=== PATIENT | female | born 1965 | race Two or more races ===

== ENCOUNTER 2017-07-03 06:42 | Day surgery (SDC) | payer OTHER ==
[~2017-07-03] VITALS: Ht 162.6 cm; Wt 70.3 kg
[2017-07-03] VITALS (9 sets, daily range): BP systolic 116–169; BP diastolic 75–94
[2017-07-03] MEDS ORDERED: LR 1000ml 1,000 ML IVLG SCH (07:00)
[2017-07-03] MEDS ORDERED: LEVOTHYROXINE100 MCG ORAL (07:25)
[2017-07-03] MEDS ORDERED: SIMVASTATIN20 MG ORAL (07:25)
[2017-07-03] MEDS ORDERED: LISINOPRIL20 MG ORAL (07:25)
--- NOTE | 2017-07-03 07:42 | Short Stay Surgery H&P ---
History of Present Illness History of Present Illness Chief Complaint Abdominal pains, GERDs and rectal bleeding AZALEA Barrios is a 52 year old female who was admitted on for Abdominal Pain,Gerds and rectal bleeding Patient History Allergies: Coded Allergies: No Known Allergies (Unverified , 07/02/17) PAST MEDICAL HISTORY: (1) Hypertension (2) Hypothyroid (3) Hyperlipidemia Past Surgeries: (1) S/P wrist surgery (2) Carpal tunnel syndrome of right wrist (3) Rotator cuff syndrome of right shoulder Social History: Medication History Scheduled Levothyroxine Sodium* (Levothyroxine Sodium*), 100 MCG ORAL DAILY, (Reported) Lisinopril (Lisinopril*), 20 MG ORAL DAILY, (Reported) Simvastatin (Zocor), 20 MG ORAL BEDTIME, (Reported) Review of Systems Cardiovascular: Reports: no symptoms Respiratory: Reports: no symptoms Skeletal: Reports: no symptoms Gastrointestinal: Reports: gastro esophageal reflux disease Genitourinary: Reports: no symptoms Neurologic: Reports: no symptoms Endocrine: Reports: other Hematologic: Reports: no symptoms Physical Exam Vital Signs Last Vital Signs Date Time Temp Pulse Resp B/P (MAP) Pulse Ox O2 Delivery O2 Flow Rate FiO2 07/03/17 07:27 97.7 51 20 140/82 100 Room Air Skin: normal HENT: normal Lungs: normal Abdomen: abnormal Extremities: normal Genitourinary: normal Plan Plan of Care Upper and lowe GI endoscopy Preop Interventions None. Summary of Findings See the reports. Final Diagnosis: Attestation Are the patient's medical conditions optimized for surgery? Attestation Response: yes LAWANDA BALLESTEROS Jul 03, 2017 07:42
--- NOTE | 2017-07-03 07:43 | Pre-Procedure Note/Attestation ---
Pre-Procedure Note/Attestation Complete Prior to Procedure Planned Procedure: left Procedure Narrative: Upper and lower Endoscopic exam of the GI tract. Indications for Procedure Pre-Operative Diagnosis: R/O Peptic ulcer/Gastritis/ Hemorrhoids/polyps/colitis. Attestation I attest that I discussed the nature of the procedure; its benefits; risks and complications; and alternatives (and the risks and benefits of such alternatives ), prior to the procedure, with the patient (or the patient's legal patient intake representative). I attest that, if there was a reasonable possibility of needing a blood transfusion, the patient (or the patient's legal patient intake representative) was given the [place] Department [facility] [employer] [facility] standardized written summary, pursuant to the Kenji Hortensia Blood Safety Act ([place] Health and Safety Code # 1645, as amended). I attest that I re-evaluated the patient just prior to the surgery and that there has been no change in the patient's H&P, except as documented below: LESLI,SAID Jul 03, 2017 07:43
[2017-07-03] MEDS ORDERED: LR 1000ml ONE (08:00)
[2017-07-03] MEDS ORDERED: Lidocaine 1% MPF 10mg/ml 5ml ONE (08:00)
[2017-07-03] MEDS ORDERED: Propofol 200mg/20ml IV ONE (08:00)
--- NOTE | 2017-07-03 08:27 | Immediate Post-Op Evaluation ---
Immediate Post-Op Evalulation Immediate Post-Op Evalulation Procedure: EGD Colonoscopy Date of Evaluation: Jul 03, 2017 Time of Evaluation: 08:27 IV Fluids: 300 Blood Pressure Systolic: 130 Blood Pressure Diastolic: 60 Pulse Rate: 50 Respiratory Rate: 14 O2 Sat by Pulse Oximetry: 100 Temperature (Fahrenheit): 97.0 Nausea: No Vomiting: No Complications none Patient Status: awake, reacts, patent Hydration Status: adequate Drug: none ARTEM GARCIA CRNA Jul 03, 2017 08:27
--- NOTE | 2017-07-03 08:29 | Anethesia Preoperative Eval ---
Anesthesia Pre-op PMH/ROS General Date of Evaluation: Jul 03, 2017 Time of Evaluation: 08:28 Anesthesiologist: sade ASA Score: ASA 2 Mallampati Score Class I : Soft palate, uvula, fauces, pillars visible Class II: Soft palate, uvula, fauces visible Class III: Soft palate, base of uvula visible Class IV: Only hard plate visible Mallampati Classification: Class II Surgeon: Allie Diagnosis: GERD Surgical Procedure: EGD/Colonoscopy Anesthesia History: none Allergies: Coded Allergies: No Known Allergies (Unverified , 07/02/17) Medications: see eMAR Past Medical History Cardiovascular: Reports: HTN Pulmonary: Denies: asthma, COPD, WILIAN, other Gastrointestinal/Genitourinary: Reports: GERD Endocrine: Reports: hypothyroidism Hematology/Immune: Denies: anemia, DVT, bleeding disorder, other Musculoskeletal/Integumentary: Denies: OA, RA, DJD, DDD, edema, other PSxH Narrative: shoulder surgery Anesthesia Pre-op Phys. Exam Physician Exam Last Vital Signs Date Time Temp Pulse Resp B/P (MAP) Pulse Ox O2 Delivery O2 Flow Rate FiO2 07/03/17 07:27 97.7 51 20 140/82 100 Room Air Constitutional: NAD Neurologic: CN 2-12 intact Cardiovascular: RRR Respiratory: CTA Gastrointestinal: S/NT/ND Airway Exam Mallampati Classification 2 Mallampati Score: Class II MO: full ROM: full Dentures: no upper, no lower Anesthesia Pre-op A/P Labs Urine Test menopause Studies Pre-op Studies: EKG - sr Risk Assessment & Plan Plan: mac Status Change Before Surgery: No Pre-Antibiotics Drug: none KEEGANRILLARTEM ELIZABETH [employer]UC[employer] PROGRAM ASSOCIATE Jul 03, 2017 08:29
--- NOTE | 2017-07-03 09:17 | Discharge Instructions ---
Discharge Instructions Discharge Instructions Follow up with: See the docotor after 2 weeks in the office For Congestive Heart Failure Reminder Report to your physician any weight gain of 5 pounds or more in one week. LAWANDA BALLESTEROS Jul 03, 2017 09:17
--- NOTE | 2017-07-03 09:19 | Endoscopy Procedure Note ---
Endoscopy Procedure Note Indication for Procedure: Abdominal pains and GERDs and rectal bleeding Procedures Performed: EGD - Completely normal upper GI endoscopy, biopsy done per random from gastric body., colonoscopy - Minimal internal hemorrhoids ( grade I/II) otherwise compeletely normal colon. Specimen: yes Pt Tolerated Procedure Well: Yes Estimated Blood Loss: none Anesthesiologist: Dr. Dean Anesthesia: moderate sedation Medication Given: see anesthesia record Implant(s) used?: No 50 yrs or older w/o bx or poly: Yes 10yrs. F/U not recommended: Yes If not recommended, why?: 10 yrs. F/U needed: Yes Med reason:<3 yrs.: System Reason:<3 yrs.: LAWANDA BALLESTEROS Jul 03, 2017 09:19
--- NOTE | 2017-07-03 09:32 | 48 Hour Post Anesthesia Eval ---
Post Anesthesia Evaluation Procedure: EGD Colonoscopy Date of Evaluation: Jul 03, 2017 Time of Evaluation: 09:32 Blood Pressure Systolic: 133 0: 79 Pulse Rate: 54 Respiratory Rate: 14 O2 Sat by Pulse Oximetry: 98 Airway: patent Nausea: No Vomiting: No Hydration Status: adequate Cardiopulmonary Status: stable Mental Status/LOC: patient returned to baseline Post-Anesthesia Complications: none Follow-up care needed: N/A ARTEM GARCIA CRNA Jul 03, 2017 09:32
--- NOTE | 2017-07-03 17:30 | Pre-op HX & Phy Repo 2 SIG ---
DATE OF ADMISSION: 07/03/2017 REFERRING PHYSICIAN: Dank Low M.D. HISTORY OF PRESENT ILLNESS: The applicant is a 52-year-old female, who is being seen prior to undergoing a procedure of upper and lower GI endoscopy for which she has been scheduled for evaluation of her condition in gastrointestinal tract related to work accident. The applicant basically is complaining of experiencing pain over the upper part of the abdomen, particularly over the epigastric area. She also has been experiencing intermittent rectal bleeding as well as she has also had symptoms of constipation. She reports that these abdominal pains are recurring on a daily basis and she has been treated with multiple medications including nonsteroidal anti-inflammatory agents and narcotics with codeine derivatives and as such she has been experiencing these symptoms gradually started. Basically, she has never been worked up for these conditions, which occurred subsequent to her work injury. However, the patient reports that she has been treated with acid suppressive medications including Protonix, which seems to be somewhat helpful, but still she continued to have symptoms of heartburn during the night for which I recently saw her and gave her Zantac to be taken at nighttime, which she reports has been helping her quite significantly. 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 She has suffered injuries over different parts of the body particularly right shoulder, which required surgery. She also did gradually develop injuries over the left wrist and left hand area. She also had an accident in the patient room. PAST MEDICAL HISTORY: Hypertension, hypothyroidism, and high lipids. PAST SURGICAL HISTORY: Carpal tunnel syndrome in 2012, right shoulder surgery in 2014, and left wrist cyst removal in 2011. LIST OF PRESENT MEDICATIONS: Protonix, Tylenol with Codeine, simvastatin, lisinopril, and levothyroxine. ALLERGIES: None significant. HABITS: The applicant occasionally drinks some alcohol, but very rarely smoke cigarettes, but does not use illicit drugs. REVIEW OF SYSTEMS: Basically history of present illness. PHYSICAL EXAMINATION: GENERAL: Reveals an alert and oriented female, does not seem to be in any acute distress. She answers the questions quite properly. She looks good. VITAL SIGNS: Stable. HEENT: Normocephalic. Pupils are equal in size and reactive to light. No visible jaundice. Buccal cavity, tongue midline, well hydrated. No ulcers. NECK: Supple. No JVD or thyromegaly. CHEST: Clear to auscultation and percussion. No rales or rhonchi. HEART: S1 and S2 normal. Regular rhythm. No gallops or murmur. ABDOMEN: Soft and there is some mild tenderness over upper part of the abdomen, but no organomegaly noted. No palpable mass. Bowel sounds are present. EXTREMITIES: Unremarkable. PRELIMINARY IMPRESSION: 1. Epigastric pain of uncertain etiology, rule out gastroesophageal acid reflux induced by nonsteroidal anti-inflammatory drug medications, rule out underlying peptic ulcer disease, duodenal ulcer, gastritis, and gastric ulcer secondary to use of nonsteroidal anti-inflammatory drug medications. 2. History of rectal bleeding of uncertain etiology, rule out hemorrhoids versus polyps, tumors, colitis, etc. RECOMMENDATION: The applicant seems to be stable at this time to undergo the procedure for upper and lower GI endoscopy for which she has been scheduled. She understands the risks and benefits and will sign the consent. Said Meghna Rowe DR: MAO JOB#: [id number] CC: JANETT
--- NOTE | 2017-07-03 18:15 | Operative Note - Dictated ---
DATE OF OPERATION: 07/03/2017 REFERRING PHYSICIAN: Dank Low M.D. PROCEDURE: Esophagogastroduodenoscopy with biopsy. PREOPERATIVE DIAGNOSES: 1. Abdominal pain. 2. History of gastroesophageal reflux. POSTOPERATIVE DIAGNOSIS: Completely normal upper gastrointestinal endoscopy. Biopsy was taken per random for histology. MEDICATIONS USED: Per Dr. Dean. INSTRUMENT: GIF Olympus upper gastrointestinal video endoscope. DESCRIPTION OF PROCEDURE: The patient, after arriving in the endoscopy unit, was told about risks and benefits of the procedure, which she accepted and signed the informed consent. She was then put in the left lateral decubitus position. After adequate IV sedation, the scope was gently passed through the cricopharyngeal area, was lodged into the upper esophagus, and gradually advanced towards gastroesophageal junction. The entire length of the esophagus looked normal and there was no any evidence of inflammatory process, ulceration, stricture, etc. GE junction also looked normal. No No's or hiatal hernia noted. At this time, the scope was advanced into the stomach. Gastric cavity was distended and gradually, areas of the fundus and the body and the antrum were examined, which revealed completely normal lining of the gastric mucosa without any evidence of ulcerations, inflammatory process, tumors, polyps, etc. No bleeding. One random biopsy from gastric body was obtained. Subsequently, the scope was passed through normal looking pylorus. First and second portions of duodenum were found to be completely normal. At this time, the scope was pulled back into the stomach. A retroflexion maneuver was applied. The area of the gastroesophageal junction was examined in a closer fashion, which revealed normal findings. Finally, the procedure was terminated. The patient tolerated the procedure well. Said Meghna Rowe DR: DEB JOB#: [id number] CC:
--- NOTE | 2017-07-03 20:45 | Operative Note - Dictated ---
DATE OF OPERATION: 07/03/2017 REFERRING PHYSICIAN: Dank Low M.D. PROCEDURE: Total colonoscopy. PREOPERATIVE DIAGNOSES: 1. Rectal bleeding. 2. Abdominal pain. POSTOPERATIVE DIAGNOSIS: Minimal internal hemorrhoids, otherwise completely normal total colonoscopy up to the base of the cecum as examined. MEDICATIONS USED: Per Dr. Dean, anesthesiologist. INSTRUMENT: GIF Olympus videocolonoscope. DESCRIPTION OF PROCEDURE: The patient after arriving at endoscopy unit was told about risks and benefits of the procedure, which she accepted and signed the informed consent. At this time, she was put on the left lateral decubitus position. After adequate IV sedation, the scope was gently passed through the anal area and careful examination of this section revealed presence of minimal internal hemorrhoids, which were not friable. This was consistent with possible grade I/II internal hemorrhoids. Rest of the rectum remained to be completely normal without any pathological findings. Finally, the scope was gradually passed through the rectosigmoid area and introduced into the descending colon reaching to the splenic flexure, was guided into the transverse colon and the hepatic flexure and right colon all the way to the base of the cecum as appendiceal opening was also visualized. There was no any pathology found in the entire length of the colon as examined. The colon cleanup was excellent as well. At this point, upon reaching the base of the cecum, within 8 minutes, the scope was gradually pulled out and re-evaluation of the colon did not reveal any pathology as I mentioned. The patient tolerated the procedure well and left the endoscopy unit in a good condition. Said Meghna Rowe DR: DEB JOB#: [id number] CC:
== END 2017-07-03 09:30 | disposition home or self-care (01) ==
LOC: GAS 06:42
DX: K62.5 Hemorrhage of anus and rectum (principal); R10.9 Unspecified abdominal pain; K64.8 Other hemorrhoids; K21.9 Gastro-esophageal reflux disease without esophagitis; K59.00 Constipation, unspecified; I10 Essential (primary) hypertension; E03.9 Hypothyroidism, unspecified
CPT/HCPCS: 43239; 45378; J2704; J7120; 94003; 94150